=== PATIENT | male | born 1985 | race Native Hawaiian/Other Pacific Islander ===

== ENCOUNTER 2020-08-04 14:47 | Inpatient (IN) | payer OTHER ==
--- NOTE | 2020-08-04 15:00 | Event Note ---
ED Screening Note ED Screening Note: RUQ PAIN WITH N/V NO ETOH VSS This initial assessment/diagnostic orders/clinical plan/treatment(s) is/are subject to change based on patients health status, clinical progression and re- assessment by fellow clinical providers in the ED. Further treatment and workup at subsequent clinical providers discretion. Patient/guardian urged not to elope from the ED as their condition may be serious if not clinically assessed and managed. Initial orders include: LABS UA
[2020-08-04 15:45] LABS: Bilirubin,Urine NEG (Negative); Blood,Urine NEG (Negative); Color,Urine Yellow (Yellow); Urobilinogen,Urine < 2.0 mg/dL (<2.0)
[2020-08-04 15:50] LABS: Basophils % (Auto) 0.3 % (0.0-1.8); Eosinophils % (Auto) 0.2 % (0.0-4.3); Hematocrit 43.2 % (35.5-45.6); Hemoglobin 14.4 gm/dl (11.8-15.2); Lymphocytes # (Auto) 1.2 K/mm3 (1.2-5.4); Lymphocytes % (Auto) 8.8 % (13.4-35.0); Mean Corpuscular HGB Conc 33 % (32-34); Mean Corpuscular Volume 89 fl (84-94); Monocytes # (Auto) 1.2 K/mm3 (0.0-0.8); Monocytes % (Auto) 9.2 % (0.0-7.3); Platelet Count 253 K/mm3 (140-440); Red Blood Count 4.86 M/mm3 (3.65-5.03); Red Cell Distribution Width 13.4 % (13.2-15.2)
[2020-08-04 15:57] LABS: Alanine Aminotransferase 57 units/L (7-56); Albumin 4.5 g/dL (3.9-5); Blood Urea Nitrogen 9 mg/dL (9-20); Calcium 9.1 mg/dL (8.4-10.2); Hemolysis Index 16
[2020-08-04 15:59] LABS: BUN/Creatinine Ratio 15
[2020-08-04] MEDS ORDERED: KETOROLAC 30 MG/1 ML INJ IV ONE (17:59)
[2020-08-04] MEDS ORDERED: ONDANSETRON 4 MG/2 ML INJ IV ONE ×2 (17:59→19:07)
--- NOTE | 2020-08-04 18:46 | Cat Scan Report ---
CT abdomen pelvis w con INDICATION: Right-sided abdominal pain. COMPARISON: None TECHNIQUE: Abdominal and pelvic CT exam performed. All CT scans at this location are performed using CT dose reduction for ALARA by means of automated exposure control. FINDINGS: CT ABDOMEN and PELVIS: Lung Bases: No significant abnormality. Liver: Hypoattenuation liver consistent with hepatic steatosis.. Biliary: There are gallstones seen within the neck of the gallbladder measuring up to approximately 1 .8 cm. The gallbladder wall is mildly thickened. There is hyperemia in the hepatic parenchyma surroun ding the gallbladder fossa consistent with underlying inflammation. Spleen: No significant abnormality. Pancreas: No significant abnormality. Adrenals: No significant abnormality. Kidneys: No significant abnormality. Lymphatics: No lymphadenopathy. Vasculature: No significant abnormality. Bowel: No significant abnormality. Pelvis: No significant abnormality. Osseous Structures: No aggressive osseous lesion. Additional Findings: None IMPRESSION: 1. Findings consistent with acute calculous cholecystitis. Signer Name: Henrique Canada MD Signed: 08/04/2020 6:42 PM Workstation Name: [id number]
[2020-08-04] MEDS ORDERED: PIPERACIL/TAZOBACTA 4.5/NS 100 4.5 GM/100 ML VIAL IV ONE (19:07)
[2020-08-04] MEDS ORDERED: MORPHINE 4 MG/1 ML INJ IV ONE (19:07)
--- NOTE | 2020-08-04 19:22 | Emergency Department Report ---
ED Abdominal Pain HPI - General Chief Complaint: Abdominal Pain Stated Complaint: ABD PAIN Time Seen by Provider: 08/04/20 14:59 Source: patient Mode of arrival: Ambulatory Limitations: Language Barrier - History of Present Illness Initial Comments: Patient is a 34-year-old male previously healthy who is presenting with right upper quadrant pain. Patient states pain has been present for 2 days. Yesterday had several episodes of nausea and vomiting but the nausea has since resolved. Pain estimated 6 out of 10 in severity. Patient states the pain is not worse with movement with any other activity. Does not have a history of right upper quadrant pain with eating. Denies any cough cold congestion fevers or chills. Severity scale (0 -10): 6 Quality: aching Consistency: constant Improves With: nothing Worsens With: nothing Associated Symptoms: nausea, vomiting. denies: diarrhea, fever, chills, constipation, dysuria, hematemesis, melena, hematuria, anorexia, syncope - Related Data Allergies Allergy/AdvReac Type Severity Reaction Status Date / Time No Known Allergies Allergy Unverified 08/04/20 14:58 ED Review of Systems ROS: Stated complaint: ABD PAIN Other details as noted in HPI Comment: All other systems reviewed and negative ED Past Medical Hx - Past Medical History Previous Medical History?: No - Surgical History Past Surgical History?: No - Social History Smoking Status: Never Smoker Substance Use Type: None ED Physical Exam - General Limitations: Language Barrier General appearance: alert, in no apparent distress - Head Head exam: Present: atraumatic, normocephalic - Eye Eye exam: Present: normal appearance, PERRL, EOMI - ENT ENT exam: Present: mucous membranes moist - Neck Neck exam: Present: normal inspection - Respiratory Respiratory exam: Present: normal lung sounds bilaterally. Absent: respiratory distress, wheezes, rales, rhonchi - Cardiovascular Cardiovascular Exam: Present: regular rate, normal rhythm, normal heart sounds. Absent: systolic murmur, diastolic murmur, rubs, gallop - GI/Abdominal GI/Abdominal exam: Present: soft, normal bowel sounds. Absent: distended, tenderness, guarding, rebound - Rectal Rectal exam: Present: deferred - Extremities Exam Extremities exam: Present: normal inspection - Back Exam Back exam: Present: normal inspection - Neurological Exam Neurological exam: Present: alert, oriented X3 - Psychiatric Psychiatric exam: Present: normal affect, normal mood - Skin Skin exam: Present: warm, dry, intact, normal color. Absent: rash ED Course Vital Signs 08/04/20 08/04/20 08/04/20 15:01 18:00 18:15 Temperature 99.8 F H 99.5 F Pulse Rate 92 H 87 Respiratory 18 16 17 Rate Blood Pressure 135/83 Blood Pressure 132/77 [Right] O2 Sat by Pulse 98 97 Oximetry ED Medical Decision Making - Lab Data Result diagrams: 08/04/20 15:13 08/04/20 15:13 Lab Results 08/04/20 08/04/20 08/04/20 Range/Units 15:13 15:13 15:13 WBC 13.2 H (4.5-11.0) K/mm3 RBC 4.86 (3.65-5.03) M/mm3 Hgb 14.4 (11.8-15.2) gm/dl Hct 43.2 (35.5-45.6) % MCV 89 (84-94) fl MCH 30 (28-32) pg MCHC 33 (32-34) % RDW 13.4 (13.2-15.2) % Plt Count 253 (140-440) K/mm3 Lymph % (Auto) 8.8 L (13.4-35.0) % [place] % (Auto) 9.2 H (0.0-7.3) % Eos % (Auto) 0.2 (0.0-4.3) % Baso % (Auto) 0.3 (0.0-1.8) % Lymph # (Auto) 1.2 (1.2-5.4) K/mm3 [place] # (Auto) 1.2 H (0.0-0.8) K/mm3 Eos # (Auto) 0.0 (0.0-0.4) K/mm3 Baso # (Auto) 0.0 (0.0-0.1) K/mm3 Seg Neutrophils % 81.5 H (40.0-70.0) % Seg Neutrophils # 10.8 H (1.8-7.7) K/mm3 Sodium 138 (137-145) mmol/L Potassium 3.9 (3.6-5.0) mmol/L Chloride 98.9 (98-107) mmol/L Carbon Dioxide 28 (22-30) mmol/L Anion Gap 15 mmol/L BUN 9 (9-20) mg/dL Creatinine 0.6 L (0.8-1.3) mg/dL Estimated GFR > 60 ml/min BUN/Creatinine Ratio 15 % Glucose 149 H (75-100) mg/dL Calcium 9.1 (8.4-10.2) mg/dL Total Bilirubin 1.00 (0.1-1.2) mg/dL AST 23 (5-40) units/L ALT 57 H (7-56) units/L Alkaline Phosphatase 69 (35-129) units/L Total Protein 8.0 (6.3-8.2) g/dL Albumin 4.5 (3.9-5) g/dL Albumin/Globulin Ratio 1.3 % Lipase 18 (13-60) units/L Urine Color (Yellow) Urine Turbidity (Clear) Urine pH (5.0-7.0) Ur Specific [place] (1.003-1.030) Urine Protein (Negative) mg/dL Urine Glucose (UA) (Negative) mg/dL Urine Ketones (Negative) mg/dL Urine Blood (Negative) Urine Nitrite (Negative) Ur Reducing Substances Urine Bilirubin (Negative) Urine Ictotest Urine Urobilinogen (<2.0) mg/dL Ur Leukocyte Esterase (Negative) Urine WBC (Auto) (0.0-6.0) /HPF Urine RBC (Auto) (0.0-6.0) /HPF Urine Yeast (Budding) /HPF 08/04/20 Range/Units 15:21 WBC (4.5-11.0) K/mm3 RBC (3.65-5.03) M/mm3 Hgb (11.8-15.2) gm/dl Hct (35.5-45.6) % MCV (84-94) fl MCH (28-32) pg MCHC (32-34) % RDW (13.2-15.2) % Plt Count (140-440) K/mm3 Lymph % (Auto) (13.4-35.0) % [place] % (Auto) (0.0-7.3) % Eos % (Auto) (0.0-4.3) % Baso % (Auto) (0.0-1.8) % Lymph # (Auto) (1.2-5.4) K/mm3 [place] # (Auto) (0.0-0.8) K/mm3 Eos # (Auto) (0.0-0.4) K/mm3 Baso # (Auto) (0.0-0.1) K/mm3 Seg Neutrophils % (40.0-70.0) % Seg Neutrophils # (1.8-7.7) K/mm3 Sodium (137-145) mmol/L Potassium (3.6-5.0) mmol/L Chloride (98-107) mmol/L Carbon Dioxide (22-30) mmol/L Anion Gap mmol/L BUN (9-20) mg/dL Creatinine (0.8-1.3) mg/dL Estimated GFR ml/min BUN/Creatinine Ratio % Glucose (75-100) mg/dL Calcium (8.4-10.2) mg/dL Total Bilirubin (0.1-1.2) mg/dL AST (5-40) units/L ALT (7-56) units/L Alkaline Phosphatase (35-129) units/L Total Protein (6.3-8.2) g/dL Albumin (3.9-5) g/dL Albumin/Globulin Ratio % Lipase (13-60) units/L Urine Color Yellow (Yellow) Urine Turbidity Cloudy (Clear) Urine pH 8.0 H (5.0-7.0) Ur Specific [place] 1.024 (1.003-1.030) Urine Protein 30 mg/dl (Negative) mg/dL Urine Glucose (UA) Neg (Negative) mg/dL Urine Ketones Neg (Negative) mg/dL Urine Blood Neg (Negative) Urine Nitrite Neg (Negative) Ur Reducing Substances Not Reportable Urine Bilirubin Neg (Negative) Urine Ictotest Not Reportable Urine Urobilinogen < 2.0 (<2.0) mg/dL Ur Leukocyte Esterase Neg (Negative) Urine WBC (Auto) 9.0 H (0.0-6.0) /HPF Urine RBC (Auto) 1.0 (0.0-6.0) /HPF Urine Yeast (Budding) 3+ /HPF - Medical Decision Making CT is consistent with acute cholecystitis. Patient has slight elevation of his white count at 13. Spoke with Dr. Hernández with general surgery who suggested that the patient receive the ultrasound but be started on Zosyn to be admitted to the hospitalist service. Patient be admitted for further management and treatment. Critical care attestation.: If time is entered above; I have spent that time in minutes in the direct care of this critically ill patient, excluding procedure time. ED Disposition Clinical Impression: Acute cholecystitis Disposition: OP ADMIT IP TO THIS HOSP Is pt being admited?: Yes Does the pt Need Aspirin: No Condition: Stable Time of Disposition: 19:22
--- NOTE | 2020-08-04 20:31 | Ultrasound Report ---
ULTRASOUND ABDOMEN, LIMITED (RIGHT UPPER QUADRANT) INDICATION: RUQ pain. COMPARISON: Abdominal CT earlier today FINDINGS: Pancreas: Visualized portion shows no significant abnormality. Liver: Moderate increased echotexture characteristic for steatosis. Gallbladder: Multiple calcified gallstones with thickened edematous gallbladder wall measuring 5 mm Bile ducts: Normal. Common Bile Duct measures 6 mm. Free fluid: None. Additional Findings: None. IMPRESSION: 1. Cholelithiasis with thickened gallbladder wall characteristic for cholecystitis 2. Hepatic steatosis Signer Name: Earl Ronquillo MD Signed: 08/04/2020 8:26 PM Workstation Name: [id number]
--- NOTE | 2020-08-04 22:39 | History and Physical Report ---
History of Present Illness Date of examination: 08/04/20 Date of admission: 08/04/20 19:22 Chief complaint: Right upper quadrant pain since last night History of present illness: 34-year-old Indonesian-speaking male ongoing for right upper quadrant pain for the last 2 days. Pain is about 10 on a scale of 1-10. Associated with nausea and vomiting. Several episodes of vomiting yesterday. Pain is intermittent. Eating is a exacerbating factor. Not eating is a relieving factor. No significant past medical history. - Past Medical History Previous Medical History?: No - Surgical History Past Surgical History?: No - Social History Smoking Status: Never Smoker Substance Use Type: None Review of Systems ROS: Constitutional no weight loss or weight gain no fever or chills HEENT no sore throat no post nasal drip no diplopia Neck no neck stiffness no lymph gland enlargement Chest and lungs no shortness of breath cough or wheezing CVS no chest pain no diaphoresis no palpitations GI nausea vomiting and right upper quadrant pain for 2 days Genitourinary system no dysuria no flank pain Musculoskeletal system no muscle pains 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 Skin no rash no itching Psychiatric no depression no homicidal or suicidal tendencies Hematologic no lymphedema or bruising Endocrine no polydipsia no polyuria no cold intolerance no heat intolerance Medications and Allergies Allergies Allergy/AdvReac Type Severity Reaction Status Date / Time No Known Allergies Allergy Unverified 08/04/20 14:58 Exam - Constitutional Vitals: Temp Pulse Resp BP Pulse Ox 99.5 F 85 22 108/64 96 08/04/20 18:15 08/04/20 22:15 08/04/20 22:15 08/04/20 22:15 08/04/20 22:15 General appearance: Present: mild distress (Secondary to pain), well-nourished - EENT Eyes: Present: PERRL ENT: hearing intact, clear oral mucosa - Neck Neck: Present: supple, normal ROM - Respiratory Respiratory effort: normal Respiratory: bilateral: CTA - Cardiovascular Heart rate: 98 Rhythm: regular Heart Sounds: Present: S1 & S2. Absent: rub, click - Extremities Extremities: no ischemia, pulses intact, pulses symmetrical, No edema Peripheral Pulses: within normal limits - Abdominal General gastrointestinal: Present: soft, non-tender, non-distended, normal bowel sounds Localized gastrointestinal: tender: RUQ, guarding: RUQ, rebound: RUQ Male genitourinary: Present: normal - Integumentary Integumentary: Present: clear, warm, dry - Musculoskeletal Musculoskeletal: gait normal, strength equal bilaterally - Psychiatric Psychiatric: appropriate mood/affect, intact judgment & insight - Neurologic Neurologic: CNII-XII intact, moves all extremities - Allied Health Allied health notes reviewed: nursing, case management Results - Labs CBC & Chem 7: 08/04/20 15:13 08/04/20 15:13 Labs: Laboratory Last Values WBC 13.2 K/mm3 (4.5-11.0) H 08/04/20 15:13 RBC 4.86 M/mm3 (3.65-5.03) 08/04/20 15:13 Hgb 14.4 gm/dl (11.8-15.2) 08/04/20 15:13 Hct 43.2 % (35.5-45.6) 08/04/20 15:13 MCV 89 fl (84-94) 08/04/20 15:13 MCH 30 pg (28-32) 08/04/20 15:13 MCHC 33 % (32-34) 08/04/20 15:13 RDW 13.4 % (13.2-15.2) 08/04/20 15:13 Plt Count 253 K/mm3 (140-440) 08/04/20 15:13 Lymph % (Auto) 8.8 % (13.4-35.0) L 08/04/20 15:13 [place] % (Auto) 9.2 % (0.0-7.3) H 08/04/20 15:13 Eos % (Auto) 0.2 % (0.0-4.3) 08/04/20 15:13 Baso % (Auto) 0.3 % (0.0-1.8) 08/04/20 15:13 Lymph # (Auto) 1.2 K/mm3 (1.2-5.4) 08/04/20 15:13 [place] # (Auto) 1.2 K/mm3 (0.0-0.8) H 08/04/20 15:13 Eos # (Auto) 0.0 K/mm3 (0.0-0.4) 08/04/20 15:13 Baso # (Auto) 0.0 K/mm3 (0.0-0.1) 08/04/20 15:13 Seg Neutrophils % 81.5 % (40.0-70.0) H 08/04/20 15:13 Seg Neutrophils # 10.8 K/mm3 (1.8-7.7) H 08/04/20 15:13 Sodium 138 mmol/L (137-145) 08/04/20 15:13 Potassium 3.9 mmol/L (3.6-5.0) 08/04/20 15:13 Chloride 98.9 mmol/L (98-107) 08/04/20 15:13 Carbon Dioxide 28 mmol/L (22-30) 08/04/20 15:13 Anion Gap 15 mmol/L 08/04/20 15:13 BUN 9 mg/dL (9-20) 08/04/20 15:13 Creatinine 0.6 mg/dL (0.8-1.3) L 08/04/20 15:13 Estimated GFR > 60 ml/min 08/04/20 15:13 BUN/Creatinine Ratio 15 % 08/04/20 15:13 Glucose 149 mg/dL (75-100) H 08/04/20 15:13 Calcium 9.1 mg/dL (8.4-10.2) 08/04/20 15:13 Total Bilirubin 1.00 mg/dL (0.1-1.2) 08/04/20 15:13 AST 23 units/L (5-40) 08/04/20 15:13 ALT 57 units/L (7-56) H 08/04/20 15:13 Alkaline Phosphatase 69 units/L (35-129) 08/04/20 15:13 Total Protein 8.0 g/dL (6.3-8.2) 08/04/20 15:13 Albumin 4.5 g/dL (3.9-5) 08/04/20 15:13 Albumin/Globulin Ratio 1.3 % 08/04/20 15:13 Lipase 18 units/L (13-60) 08/04/20 15:13 Urine Color Yellow (Yellow) 08/04/20 15:21 Urine Turbidity Cloudy (Clear) 08/04/20 15:21 Urine pH 8.0 (5.0-7.0) H 08/04/20 15:21 Ur Specific [place] 1.024 (1.003-1.030) 08/04/20 15:21 Urine Protein 30 mg/dl mg/dL (Negative) 08/04/20 15:21 Urine Glucose (UA) Neg mg/dL (Negative) 08/04/20 15:21 Urine Ketones Neg mg/dL (Negative) 08/04/20 15:21 Urine Blood Neg (Negative) 08/04/20 15:21 Urine Nitrite Neg (Negative) 08/04/20 15: Ur Reducing Substances Not Reportable 08/04/20 15:21 Urine Bilirubin Neg (Negative) 08/04/20 15: Urine Ictotest Not Reportable 08/04/20 15: Urine Urobilinogen < 2.0 mg/dL (<2.0) 08/04/20 15:21 Ur Leukocyte Esterase Neg (Negative) 08/04/20 15:21 Urine WBC (Auto) 9.0 /HPF (0.0-6.0) H 08/04/20 15:21 Urine RBC (Auto) 1.0 /HPF (0.0-6.0) 08/04/20 15:21 Urine Yeast (Budding) 3+ /HPF 08/04/20 15:21 Short CBC 08/04/20 Range/Units 15:13 WBC 13.2 H (4.5-11.0) K/mm3 Hgb 14.4 (11.8-15.2) gm/dl Hct 43.2 (35.5-45.6) % Plt Count 253 (140-440) K/mm3 BMP 08/04/20 15:13 Sodium 138 Potassium 3.9 Chloride 98.9 Carbon Dioxide 28 BUN 9 Creatinine 0.6 L Glucose 149 H Calcium 9.1 Liver Function 08/04/20 Range/Units 15:13 Total Bilirubin 1.00 (0.1-1.2) mg/dL AST 23 (5-40) units/L ALT 57 H (7-56) units/L Alkaline Phosphatase 69 (35-129) units/L Albumin 4.5 (3.9-5) g/dL Urine 08/04/20 Range/Units 15:21 Urine Color Yellow (Yellow) Urine pH 8.0 H (5.0-7.0) Ur Specific [place] 1.024 (1.003-1.030) Urine Protein 30 mg/dl (Negative) mg/dL Urine Glucose (UA) Neg (Negative) mg/dL - Imaging and Cardiology CT scan - abdomen: report reviewed US - abdomen: report reviewed Imaging and Cardiology: Abdominal CAT scan Findings consistent with acute calculus cholecystitis none Abdominal ultrasound Cholelithiasis with thickened gallbladder wall It were cholecystitis Hepatic steatosis Assessment and Plan Advance Directives: Yes (Full code) VTE prophylaxis?: Chemical Plan of care discussed with patient/family: Yes - Patient Problems (1) SIRS (systemic inflammatory response syndrome) Current Visit: Yes Status: Acute Plan to address problem: Patient had leukocytosis and tachycardia (2) Acute cholecystitis Current Visit: Yes Status: Acute Plan to address problem: Patient initiated on IV Zosyn and IV Dilaudid for pain and IV Zofran for nausea vomiting Surgery consult requested (3) DVT prophylaxis Current Visit: Yes Status: Acute Plan to address problem: On SCDs and GI prophylaxis (4) Acute dehydration Current Visit: Yes Status: Acute Plan to address problem: IV fluids for now
[2020-08-04] MEDS ORDERED: ONDANSETRON 4 MG/2 ML INJ IV PRN (22:40)
[2020-08-04] MEDS ORDERED: METOCLOPRAMIDE 10 MG/2 ML INJ IV PRN (22:40)
[2020-08-04] MEDS ORDERED: ACETAMINOPHEN 325 MG TAB PO PRN (22:40)
[2020-08-05] MEDS: D5W/0.9% NACL 1,000 ML IV SCH (00:26)
[2020-08-05] MEDS: FAMOTIDINE 20 MG/2 ML INJ IV SCH ×3 (00:27→21:34)
[2020-08-05] MEDS: PIPERACIL/TAZOBACTA 4.5/NS 100 4.5 GM/100 ML VIAL IV SCH ×3 (04:41→22:43)
--- NOTE | 2020-08-05 09:03 | Progress Note ---
Assessment and Plan Assessment and plan: (1) sepsis Current Visit: Yes Status: Acute Plan to address problem: Patient had leukocytosis and tachycardia Patient is on IV Zosyn (2) Acute cholecystitis Current Visit: Yes Status: Acute Plan to address problem: Patient initiated on IV Zosyn and IV Dilaudid for pain and IV Zofran for nausea vomiting Surgery consult requested (3) DVT prophylaxis Current Visit: Yes Status: Acute Plan to address problem: On SCDs and GI prophylaxis (4) Acute dehydration Current Visit: Yes Status: Acute Plan to address problem: IV fluids for now 08/05/2020 -Patient is admitted for sepsis, acute cholecystitis. Patient is on IV Zosyn. General surgery; Dr. Hernández was consulted. Will follow surgical recommendations. History Interval history: Patient was seen and evaluated this morning Patient is complaining of right upper quadrant pain Hospitalist Physical - Physical exam Narrative exam: Not in cardiopulmonary distress. The patient appeared well nourished and normally developed. Vital signs as documented. Head exam is unremarkable. No scleral icterus . Neck is without jugular venous distension, thyromegaly, or carotid bruits. Lungs are clear to auscultation. Cardiac exam reveals regular rate and Rhythm. Abdominal exam reveals normal bowel sounds, no organomegaly. Right upper quadrant tenderness. Extremities are nonedematous and both femoral and pedal pulses are normal. 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 No focal weakness. - Constitutional Vitals: Temp Pulse Resp BP Pulse Ox 97.5 F L 84 16 108/72 96 08/05/20 03:21 08/05/20 03:21 08/05/20 03:21 08/05/20 03:21 08/05/20 03:21 General appearance: Present: mild distress (Secondary to pain), well-nourished Results - Labs CBC & Chem 7: 08/04/20 15:13 08/04/20 15:13 Labs: Laboratory Last Values WBC 13.2 K/mm3 (4.5-11.0) H 08/04/20 15:13 RBC 4.86 M/mm3 (3.65-5.03) 08/04/20 15:13 Hgb 14.4 gm/dl (11.8-15.2) 08/04/20 15:13 Hct 43.2 % (35.5-45.6) 08/04/20 15:13 MCV 89 fl (84-94) 08/04/20 15:13 MCH 30 pg (28-32) 08/04/20 15:13 MCHC 33 % (32-34) 08/04/20 15:13 RDW 13.4 % (13.2-15.2) 08/04/20 15:13 Plt Count 253 K/mm3 (140-440) 08/04/20 15:13 Lymph % (Auto) 8.8 % (13.4-35.0) L 08/04/20 15:13 [place] % (Auto) 9.2 % (0.0-7.3) H 08/04/20 15:13 Eos % (Auto) 0.2 % (0.0-4.3) 08/04/20 15:13 Baso % (Auto) 0.3 % (0.0-1.8) 08/04/20 15:13 Lymph # (Auto) 1.2 K/mm3 (1.2-5.4) 08/04/20 15:13 [place] # (Auto) 1.2 K/mm3 (0.0-0.8) H 08/04/20 15:13 Eos # (Auto) 0.0 K/mm3 (0.0-0.4) 08/04/20 15:13 Baso # (Auto) 0.0 K/mm3 (0.0-0.1) 08/04/20 15:13 Seg Neutrophils % 81.5 % (40.0-70.0) H 08/04/20 15:13 Seg Neutrophils # 10.8 K/mm3 (1.8-7.7) H 08/04/20 15:13 Sodium 138 mmol/L (137-145) 08/04/20 15:13 Potassium 3.9 mmol/L (3.6-5.0) 08/04/20 15:13 Chloride 98.9 mmol/L (98-107) 08/04/20 15:13 Carbon Dioxide 28 mmol/L (22-30) 08/04/20 15:13 Anion Gap 15 mmol/L 08/04/20 15:13 BUN 9 mg/dL (9-20) 08/04/20 15:13 Creatinine 0.6 mg/dL (0.8-1.3) L 08/04/20 15:13 Estimated GFR > 60 ml/min 08/04/20 15:13 BUN/Creatinine Ratio 15 % 08/04/20 15:13 Glucose 149 mg/dL (75-100) H 08/04/20 15:13 Calcium 9.1 mg/dL (8.4-10.2) 08/04/20 15:13 Total Bilirubin 1.00 mg/dL (0.1-1.2) 08/04/20 15:13 AST 23 units/L (5-40) 08/04/20 15:13 ALT 57 units/L (7-56) H 08/04/20 15:13 Alkaline Phosphatase 69 units/L (35-129) 08/04/20 15:13 Total Protein 8.0 g/dL (6.3-8.2) 08/04/20 15:13 Albumin 4.5 g/dL (3.9-5) 08/04/20 15:13 Albumin/Globulin Ratio 1.3 % 08/04/20 15:13 Lipase 18 units/L (13-60) 08/04/20 15:13 Urine Color Yellow (Yellow) 08/04/20 15:21 Urine Turbidity Cloudy (Clear) 08/04/20 15:21 Urine pH 8.0 (5.0-7.0) H 08/04/20 15:21 Ur Specific [place] 1.024 (1.003-1.030) 08/04/20 15:21 Urine Protein 30 mg/dl mg/dL (Negative) 08/04/20 15:21 Urine Glucose (UA) Neg mg/dL (Negative) 08/04/20 15:21 Urine Ketones Neg mg/dL (Negative) 08/04/20 15:21 Urine Blood Neg (Negative) 08/04/20 15:21 Urine Nitrite Neg (Negative) 08/04/20 15:21 Ur Reducing Substances Not Reportable 08/04/20 15: Urine Bilirubin Neg (Negative) 08/04/20 15:21 Urine Ictotest Not Reportable 08/04/20 15:21 Urine Urobilinogen < 2.0 mg/dL (<2.0) 08/04/20 15:21 Ur Leukocyte Esterase Neg (Negative) 08/04/20 15:21 Urine WBC (Auto) 9.0 /HPF (0.0-6.0) H 08/04/20 15:21 Urine RBC (Auto) 1.0 /HPF (0.0-6.0) 08/04/20 15:21 Urine Yeast (Budding) 3+ /HPF 08/04/20 15:21 Gordon/IV: Voiding Method Toilet Active Medications - Current Medications Current Medications: Generic Name Dose Route Start Last Admin Trade Name Freq PRN Reason Stop Dose Admin Acetaminophen 650 mg 08/04/20 22:40 Acetaminophen 325 Mg Tab PO Q4H PRN Pain MILD(1-3)/Fever >100.5/MARIN Famotidine 20 mg 08/04/20 23:00 08/05/20 00:27 Famotidine 20 Mg/2 Ml Inj IV 20 mg BID SEAN Administration Heparin Sodium (Porcine) 5,000 unit 08/05/20 22:00 Heparin 5,000 Unit/1 Ml Vial SUB-Q Q12HR SEAN Hydromorphone HCl 0.5 mg 08/04/20 22:40 Hydromorphone 1 Mg/1 Ml Inj IV Q3H PRN Pain , Severe (7-10) Dextrose/Sodium Chloride 1,000 mls @ 100 mls/hr 08/04/20 23:00 08/05/20 00:26 D5ns IV 100 mls/hr DIRECT SEAN Administration Piperacillin Sod/Tazobactam Sod 4.5 gm in 100 mls @ 200 mls/hr 08/05/20 04:00 08/05/20 07:17 Zosyn/Ns 4.5gm/100ml IV Infused Q8HR SEAN Infusion Protocol Metoclopramide HCl 10 mg 08/04/20 22:40 Metoclopramide 10 Mg/2 Ml Inj IV Q6H PRN Nausea And Vomiting Morphine Sulfate 2 mg 08/04/20 22:40 Morphine 2 Mg/1 Ml Inj IV Q4H PRN Pain, Moderate (4-6) Ondansetron HCl 4 mg 08/04/20 22:40 Ondansetron 4 Mg/2 Ml Inj IV Q3H PRN Nausea And Vomiting Sodium Chloride 10 ml 08/04/20 23:00 08/05/20 00:27 Sodium Chloride 0.9% 10 Ml Flush Syringe IV 10 ml BID SEAN Administration Sodium Chloride 10 ml 08/04/20 22:40 Sodium Chloride 0.9% 10 Ml Flush Syringe IV PRN PRN LINE FLUSH Nutrition/Malnutrition Assess - Dietary Evaluation Nutrition/Malnutrition Findings: Nutrition Notes Start: 08/05/20 08:51 Freq: Status: Active Protocol: Document 08/05/20 08:51 AB (Rec: 08/05/20 08:53 AB [id number]) Co-Sign 08/05/20 08:51 MK Nutrition Notes Need for Assessment 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 Per chart, Toño Score is 22. Nutrition Intervention Anticipated Discharge Needs: Regular diet Revisit per MD consult or patient Sign Off request:
[2020-08-05] MEDS: MORPHINE 2 MG/1 ML INJ IV PRN ×3 (13:34→22:43)
--- NOTE | 2020-08-05 16:54 | Consultation ---
History of Present Illness Consult date: 08/05/20 Reason for consult: abdominal pain - History of present illness History of present illness: 34 yo male with 2 days of RUQ pain, nausea and vomiting. Eating exacerbates his pain. No relieving factors. Medications and Allergies Allergies Allergy/AdvReac Type Severity Reaction Status Date / Time No Known Allergies Allergy Unverified 08/04/20 14:58 Active Meds: Active Medications Acetaminophen (Acetaminophen 325 Mg Tab) 650 mg PO Q4H PRN PRN Reason: Pain MILD(1-3)/Fever >100.5/MARIN Famotidine (Famotidine 20 Mg/2 Ml Inj) 20 mg IV BID [facility] Last Admin: 08/05/20 13:13 Dose: 20 mg Documented by: Heparin Sodium (Porcine) (Heparin 5,000 Unit/1 Ml Vial) 5,000 unit SUB-Q Q12HR SEAN Hydromorphone HCl (Hydromorphone 1 Mg/1 Ml Inj) 0.5 mg IV Q3H PRN PRN Reason: Pain , Severe (7-10) Dextrose/Sodium Chloride (D5ns) 1,000 mls @ 100 mls/hr IV DIRECT [facility] Last Admin: 08/05/20 00:26 Dose: 100 mls/hr Documented by: Piperacillin Sod/Tazobactam Sod (Zosyn/Ns 4.5gm/100ml) 4.5 gm in 100 mls @ 200 mls/hr IV Q8HR [facility]; Protocol Last Admin: 08/05/20 13:12 Dose: 200 mls/hr Documented by: Metoclopramide HCl (Metoclopramide 10 Mg/2 Ml Inj) 10 mg IV Q6H PRN PRN Reason: Nausea And Vomiting Morphine Sulfate (Morphine 2 Mg/1 Ml Inj) 2 mg IV Q4H PRN PRN Reason: Pain, Moderate (4-6) Last Admin: 08/05/20 13:34 Dose: 2 mg Documented by: Ondansetron HCl (Ondansetron 4 Mg/2 Ml Inj) 4 mg IV Q3H PRN PRN Reason: Nausea And Vomiting Sodium Chloride (Sodium Chloride 0.9% 10 Ml Flush Syringe) 10 ml IV BID [facility] Last Admin: 08/05/20 13:12 Dose: 10 ml Documented by: Sodium Chloride (Sodium Chloride 0.9% 10 Ml Flush Syringe) 10 ml IV PRN PRN PRN Reason: LINE FLUSH Review of Systems All systems: negative (none) Exam Vital Signs Temp Pulse Resp BP Pulse Ox 99.8 F H 92 H 18 135/83 98 08/04/20 15:01 08/04/20 15:01 08/04/20 15:01 08/04/20 15:01 08/04/20 15:01 - General physical appearance Positive: well developed, well nourished, no distress - Eyes Positive: PERRL, normal occular movement - ENT Positive: normal pinna, normal nares, normal mucosa, no hearing loss, no congestion - Neck Positive: no masses, no bruits, trachea midline, no venous distension - Respiratory Positive: normal expansion, normal respiratory effort, clear to auscultation - Cardiovascular Rhythm: regular Heart Sounds: Present: S1 & S2. Absent: rub, click - Extremities Extremities: no ischemia, pulses symmetrical, No edema - Breasts Breasts: normal, no mass, no skin changes - Abdomen Abdomen: Present: soft, bowel sounds normal, other (Mildly TTP in the RUQ without rebound or guarding). Absent: distended Hernia: none - Genitourinary Male Genitourinary: normal Female Genitourinary: normal - Integumentary no rash, no growths, no abnormal pigmentation - Neurologic Neurologic: alert and oriented to time, place and person, motor strength and sensation are grossly intact - Musculoskeletal normal gait, normal posture - Psychiatric Psychiatric: appropriate mood/affect, intact judgment & insight Results - Labs 08/04/20 15:13 08/04/20 15:13 - Imaging CT scan - abdomen: report reviewed CT scan - pelvis: report reviewed US - abdomen: report reviewed Assessment and Plan - Patient Problems (1) Acute cholecystitis Current Visit: Yes Status: Acute Plan to address problem: 1) Clear liquids until MN 2) NPO after MN 3) Lap yesica tomorrow 4) Broad spectrum IV antibiotics 5) SCD
[2020-08-05] MEDS: HEPARIN 5,000 UNIT/1 ML VIAL SUB-Q SCH (21:33)
[2020-08-06] MEDS: PIPERACIL/TAZOBACTA 4.5/NS 100 4.5 GM/100 ML VIAL IV SCH ×3 (05:28→21:31)
[2020-08-06 06:06] LABS: Basophils % (Auto) 0.4 % (0.0-1.8); Eosinophils # (Auto) 0.3 K/mm3 (0.0-0.4); Eosinophils % (Auto) 2.7 % (0.0-4.3); Hematocrit 40.6 % (35.5-45.6); Hemoglobin 13.6 gm/dl (11.8-15.2); Lymphocytes # (Auto) 1.4 K/mm3 (1.2-5.4); Lymphocytes % (Auto) 15.3 % (13.4-35.0); Mean Corpuscular HGB Conc 34 % (32-34); Mean Corpuscular Volume 89 fl (84-94); Monocytes # (Auto) 1.4 K/mm3 (0.0-0.8); Monocytes % (Auto) 15.8 % (0.0-7.3); Platelet Count 239 K/mm3 (140-440); Red Blood Count 4.57 M/mm3 (3.65-5.03)
[2020-08-06 06:16] LABS: Alanine Aminotransferase 39 units/L (7-56); Albumin 3.9 g/dL (3.9-5); Blood Urea Nitrogen 9 mg/dL (9-20); Calcium 8.8 mg/dL (8.4-10.2); Hemolysis Index 0
[2020-08-06 06:17] LABS: BUN/Creatinine Ratio 13
--- NOTE | 2020-08-06 08:59 | Progress Note ---
Assessment and Plan Assessment and plan: (1) sepsis Current Visit: Yes Status: Acute Plan to address problem: Patient had leukocytosis and tachycardia Patient is on IV Zosyn (2) Acute cholecystitis Current Visit: Yes Status: Acute Plan to address problem: Patient initiated on IV Zosyn and IV Dilaudid for pain and IV Zofran for nausea vomiting Surgery consult requested (3) DVT prophylaxis Current Visit: Yes Status: Acute Plan to address problem: On SCDs and GI prophylaxis (4) Acute dehydration Current Visit: Yes Status: Acute Plan to address problem: IV fluids for now 08/05/2020 -Patient is admitted for sepsis, acute cholecystitis. Patient is on IV Zosyn. General surgery; Dr. Hernández was consulted. Will follow surgical recommendations. 08/06/2020 -Continue with IV antibiotic. Patient will have laparoscopic cholecystectomy today. History Interval history: Patient was seen and evaluated this morning Patient is complaining of right upper quadrant pain Hospitalist Physical - Physical exam Narrative exam: Not in cardiopulmonary distress. The patient appeared well nourished and normally developed. Vital signs as documented. Head exam is unremarkable. No scleral icterus . Neck is without jugular venous distension, thyromegaly, or carotid bruits. Lungs are clear to auscultation. Cardiac exam reveals regular rate and Rhythm. Abdominal exam reveals normal bowel sounds, no organomegaly. Right upper quadrant tenderness. Extremities are nonedematous and both femoral and pedal pulses are normal. MANAGER HOME: Alert and oriented 3. No focal weakness. - Constitutional Vitals: Temp Pulse Resp BP Pulse Ox 98.6 F 73 17 99/61 95 08/06/20 05:13 08/06/20 05:13 08/06/20 05:13 08/06/20 05:13 08/06/20 05:13 General appearance: Present: mild distress (Secondary to pain), well-nourished Results - Labs CBC & Chem 7: 08/06/20 05:06 08/06/20 05:06 Labs: Laboratory Last Values WBC 9.2 K/mm3 (4.5-11.0) 08/06/20 05:06 RBC 4.57 M/mm3 (3.65-5.03) 08/06/20 05:06 Hgb 13.6 gm/dl (11.8-15.2) 08/06/20 05:06 Hct 40.6 % (35.5-45.6) 08/06/20 05:06 MCV 89 fl (84-94) 08/06/20 05:06 MCH 30 pg (28-32) 08/06/20 05:06 MCHC 34 % (32-34) 08/06/20 05:06 RDW 13.0 % (13.2-15.2) L 08/06/20 05:06 Plt Count 239 K/mm3 (140-440) 08/06/20 05:06 Lymph % (Auto) 15.3 % (13.4-35.0) 08/06/20 05:06 [place] % (Auto) 15.8 % (0.0-7.3) H 08/06/20 05:06 Eos % (Auto) 2.7 % (0.0-4.3) 08/06/20 05:06 Baso % (Auto) 0.4 % (0.0-1.8) 08/06/20 05:06 Lymph # (Auto) 1.4 K/mm3 (1.2-5.4) 08/06/20 05:06 [place] # (Auto) 1.4 K/mm3 (0.0-0.8) H 08/06/20 05:06 Eos # (Auto) 0.3 K/mm3 (0.0-0.4) 08/06/20 05:06 Baso # (Auto) 0.0 K/mm3 (0.0-0.1) 08/06/20 05:06 Seg Neutrophils % 65.8 % (40.0-70.0) 08/06/20 05:06 Seg Neutrophils # 6.0 K/mm3 (1.8-7.7) 08/06/20 05:06 Sodium 138 mmol/L (137-145) 08/06/20 05:06 Potassium 3.9 mmol/L (3.6-5.0) 08/06/20 05:06 Chloride 102.4 mmol/L (98-107) 08/06/20 05:06 Carbon Dioxide 28 mmol/L (22-30) 08/06/20 05:06 Anion Gap 12 mmol/L 08/06/20 05:06 BUN 9 mg/dL (9-20) 08/06/20 05:06 Creatinine 0.7 mg/dL (0.8-1.3) L 08/06/20 05:06 Estimated GFR > 60 ml/min 08/06/20 05:06 BUN/Creatinine Ratio 13 % 08/06/20 05:06 Glucose 118 mg/dL (75-100) H 08/06/20 05:06 Calcium 8.8 mg/dL (8.4-10.2) 08/06/20 05:06 Total Bilirubin 1.00 mg/dL (0.1-1.2) 08/06/20 05:06 AST 18 units/L (5-40) 08/06/20 05:06 ALT 39 units/L (7-56) 08/06/20 05:06 Alkaline Phosphatase 66 units/L (35-129) 08/06/20 05:06 Total Protein 7.5 g/dL (6.3-8.2) 08/06/20 05:06 Albumin 3.9 g/dL (3.9-5) 08/06/20 05:06 Albumin/Globulin Ratio 1.1 % 08/06/20 05:06 Lipase 18 units/L (13-60) 08/04/20 15:13 Urine Color Yellow (Yellow) 08/04/20 15:21 Urine Turbidity Cloudy (Clear) 08/04/20 15:21 Urine pH 8.0 (5.0-7.0) H 08/04/20 15:21 Ur Specific Effort 1.024 (1.003-1.030) 08/04/20 15:21 Urine Protein 30 mg/dl mg/dL (Negative) 08/04/20 15:21 Urine Glucose (UA) Neg mg/dL (Negative) 08/04/20 15:21 Urine Ketones Neg mg/dL (Negative) 08/04/20 15:21 Urine Blood Neg (Negative) 08/04/20 15:21 Urine Nitrite Neg (Negative) 08/04/20 15:21 Ur Reducing Substances Not Reportable 08/04/20 15:21 Urine Bilirubin Neg (Negative) 08/04/20 15:21 Urine Ictotest Not Reportable 08/04/20 15:21 Urine Urobilinogen < 2.0 mg/dL (<2.0) 08/04/20 15:21 Ur Leukocyte Esterase Neg (Negative) 08/04/20 15:21 Urine WBC (Auto) 9.0 /HPF (0.0-6.0) H 08/04/20 15:21 Urine RBC (Auto) 1.0 /HPF (0.0-6.0) 08/04/20 15:21 Urine Yeast (Budding) 3+ /HPF 08/04/20 15:21 Gordon/IV: Voiding Method Toilet Active Medications - Current Medications Current Medications: Generic Name Dose Route Start Last Admin Trade Name Freq PRN Reason Stop Dose Admin Acetaminophen 650 mg 08/04/20 22:40 Acetaminophen 325 Mg Tab PO Q4H PRN Pain MILD(1-3)/Fever >100.5/MARIN Famotidine 20 mg 08/04/20 23:00 08/05/20 21:34 Famotidine 20 Mg/2 Ml Inj IV 20 mg BID SEAN Administration Heparin Sodium (Porcine) 5,000 unit 08/05/20 22:00 08/05/20 21:33 Heparin 5,000 Unit/1 Ml Vial SUB-Q 5,000 unit Q12HR SEAN Administration Hydromorphone HCl 0.5 mg 08/04/20 22:40 Hydromorphone 1 Mg/1 Ml Inj IV Q3H PRN Pain , Severe (7-10) Dextrose/Sodium Chloride 1,000 mls @ 100 mls/hr 08/04/20 23:00 08/05/20 00:26 D5ns IV 100 mls/hr DIRECT SEAN Administration Piperacillin Sod/Tazobactam Sod 4.5 gm in 100 mls @ 200 mls/hr 08/05/20 04:00 08/06/20 05:28 Zosyn/Ns 4.5gm/100ml IV 200 mls/hr Q8HR SEAN Administration Protocol Metoclopramide HCl 10 mg 08/04/20 22:40 Metoclopramide 10 Mg/2 Ml Inj IV Q6H PRN Nausea And Vomiting Morphine Sulfate 2 mg 08/04/20 22:40 08/05/20 22:43 Morphine 2 Mg/1 Ml Inj IV 2 mg Q4H PRN Administration Pain, Moderate (4-6) Ondansetron HCl 4 mg 08/04/20 22:40 Ondansetron 4 Mg/2 Ml Inj IV Q3H PRN Nausea And Vomiting Sodium Chloride 10 ml 08/04/20 23:00 08/05/20 21:35 Sodium Chloride 0.9% 10 Ml Flush Syringe IV 10 ml BID SEAN Administration Sodium Chloride 10 ml 08/04/20 22:40 Sodium Chloride 0.9% 10 Ml Flush Syringe IV PRN PRN LINE FLUSH Nutrition/Malnutrition Assess - Dietary Evaluation Nutrition/Malnutrition Findings: Nutrition Notes Start: 08/05/20 08:51 Freq: Status: Active Protocol: Document 08/05/20 08:51 AB (Rec: 08/05/20 08:53 AB [id number]) Co-Sign 08/05/20 08:51 MK Nutrition Notes Need for Assessment 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 Per chart, Toño Score is 22. Nutrition Intervention Anticipated Discharge Needs: Regular diet Revisit per MD consult or patient Sign Off request:
[2020-08-06] MEDS: HEPARIN 5,000 UNIT/1 ML VIAL SUB-Q SCH ×2 (09:53→21:30)
[2020-08-06] MEDS: D5W/0.9% NACL 1,000 ML IV SCH (09:53)
[2020-08-06] MEDS: HYDROmorphone 1 MG/1 ML INJ IV PRN (09:53)
[2020-08-06] MEDS: FAMOTIDINE 20 MG/2 ML INJ IV SCH ×2 (09:53→21:31)
--- NOTE | 2020-08-06 14:55 | Anesthesia Consultation ---
Anesthesia Consult and Med Hx Date of service: 08/06/20 - Airway Anesthetic Teeth Evaluation: Good ROM Head & Neck: Adequate Mental/Hyoid Distance: Adequate Mallampati Class: Class II Intubation Access Assessment: Probably Good - Pre-Operative Health Status ASA Pre-Surgery Classification: ASA2 Proposed Anesthetic Plan: General - Pulmonary Hx Smoking: No Hx Asthma: No COPD: No Hx Pneumonia: No Hx Sleep Apnea: No - Cardiovascular System Hx Hypertension: No Hx Coronary Artery Disease: No Hx Heart Attack/AMI: No Hx Angina: No Hx Percutaneous Transluminal Coronary Angioplasty (PTCA): No Hx Pacemaker: No Hx Internal Defibrillator: No Hx Valvular Heart Disease: No Hx Heart Murmur: No Hx Peripheral Vascular Disease: No - Central Nervous System Hx Seizures: No CVA: No Hx Psychiatric Problems: No - Endocrine Hx Renal Disease: No Hx End Stage Renal Disease: No Hx Liver Disease: Yes (acute cholecystitis with stones) - Other Systems Hx Obesity: No
--- NOTE | 2020-08-06 14:56 | Anesthesia Day of Surgery ---
Anesthesia Day of Surgery - Day of Surgery Patient Examined: Yes Patient H&P Reviewed: Yes Patient is NPO: Yes
[2020-08-06] MEDS ORDERED: LIDOCAINE MPF (2%) 20 MG/1 ML VIAL 5 ML ONE (16:00)
[2020-08-06] MEDS ORDERED: HYDROmorphone 1 MG/1 ML INJ ONE (16:00)
[2020-08-06] MEDS ORDERED: propofoL 200 MG/20 ML VIAL IV ONE (16:00)
[2020-08-06] MEDS ORDERED: BUPIVACAINE-EPINEPHRINE/PF 0.5%-1:200,000 (30 ML) VIAL INFILTRATI ONE ×2 (16:27→17:38)
[2020-08-06] MEDS ORDERED: ROCURONIUM 50 MG/5 ML INJ IV ONE ×2 (17:08→18:22)
[2020-08-06] MEDS ORDERED: LACTATED RINGERS 1,000 ML ONE ×3 (17:08→19:42)
[2020-08-06] MEDS ORDERED: SODIUM CHLORIDE 0.9% IRRIG SOLN 2000 ML IR ONE (17:38)
[2020-08-06] MEDS ORDERED: NEOSTIGMINE 10MG/10 ML INJ MDV ONE (18:23)
[2020-08-06] MEDS ORDERED: GLYCOPYRROLATE 0.4 MG/2 ML INJ ONE (18:23)
[2020-08-06] MEDS ORDERED: KETOROLAC 30 MG/1 ML INJ ONE (18:26)
[2020-08-06] MEDS ORDERED: ONDANSETRON 4 MG/2 ML INJ ONE (18:26)
--- NOTE | 2020-08-06 19:02 | Procedure Note ---
Date of procedure: 08/06/20 Pre-op diagnosis: Acute cholecystitis Post-op diagnosis: same Procedure: Laparoscopic cholecystectomy Description of procedure: Pt was placed supine on the OR table. GETA was administered. Abdomen was prepped and draped. Proposed trocar sites were infi ltrated with 8 ml of 0.5% Marcaine with epinephrine. A small, infraumbilical incision was made. Linea alba was incised and the peritoneal cavity carefully entered. A Rena port was inserted into the peritoneal cavity and pneumoperitoneum established. 10 mm subxiphoid, 5 mm RUQ and 5 mm right lateral ports were inserted into the peritoneal cavity under direct vision without incident. Gallbladder was covered with omental adhesions. These were lysed from the fundus and the gallbladder was found to be acutely inflamed, edematous and tense. Gallbladder was decompressed with a needle trocar with 10 ml of cloudy, greenish fluid aspirated. This was sent for C&S. Fundus was grasped and the fundus retracted cephalad and laterally. Additional omental adhesions were bluntly lysed. The cystic duct and artery were identified and skeletonized. The critical view of safety was obtained. A large stone was present in the neck of the gallbladder. Cystic duct was milked towards the gallbladder and the cyst duct and artery doubly clipped and divided. The gallbladder was dissected off of it's hepatic fossa with careful blunt and electrocautery dissection. The gallbladder was entered several times during this dissection with leaking of the cloudy bile fluid into the subhepatic space. Once the gallbladder was completely freed, the gallbladder and stones were placed in an endobag and the endobag removed via the infraumbilical fascial defect. Pneumoperitoneum was re-established. Irrigation fluid used during the procedure was aspirated from Adrian's pouch and the subhepatic space. A flat, 10 mm ISHMAEL drain was passed into the peritoneal cavity and the drain placed in Adrian's pouch. The drain was brought out the right lateral trocar site and was secured to the skin with a suture of 2-0 Nylon. Pneumoperitoneum was released with no bleeding identified from any of the upper trocar sites under low pressure. The infraumbilical fascial defect was closed with several interrupted sutures of 0-Vicryl. Wounds were irrigated. Skin incisions were closed with running, subcuticular sutures of 4-0 Monocryl. Skin glue was applied to the incisions with a dry 4 X 4 placed about the drain exit site. Pt tolerated the procedure well. Pt was extubated in the OR and was taken to PACU in stable condtion. Anesthesia: BILL Surgeon: MIKAEL NAPOLES Estimated blood loss: 50-100ml Pathology: list (1) Gallbladder and gallstones 2) C&S of gallbladder fluid) Specimen disposition: to lab Condition: stable Disposition: PACU
[2020-08-06] MEDS ORDERED: ONDANSETRON 4 MG/2 ML INJ IV PRN (19:06)
[2020-08-06] MEDS ORDERED: HYDROmorphone 1 MG/1 ML INJ IV PRN (19:06)
[2020-08-06] MEDS: MORPHINE 2 MG/1 ML INJ IV PRN (21:31)
--- NOTE | 2020-08-06 22:33 | Post Anesthesia Evaluation ---
- Post Anesthesia Evaluation Patient Participated: Yes Airway Patent: Yes Stable Respiratory Function: Yes Nausea/Vomiting: No Temp > 96.8F: Yes Pain Manageable: Yes Adequeate Hydration: Yes Anesthesia Complications: No
[2020-08-07] MEDS: PIPERACIL/TAZOBACTA 4.5/NS 100 4.5 GM/100 ML VIAL IV SCH ×3 (05:47→21:58)
[2020-08-07] MEDS: MORPHINE 2 MG/1 ML INJ IV PRN ×3 (05:47→23:22)
[2020-08-07] MEDS: D5W/0.9% NACL 1,000 ML IV SCH (08:44)
[2020-08-07] MEDS: FAMOTIDINE 20 MG/2 ML INJ IV SCH ×3 (08:46→21:59)
[2020-08-07] MEDS: HEPARIN 5,000 UNIT/1 ML VIAL SUB-Q SCH ×3 (08:47→21:59)
--- NOTE | 2020-08-07 09:47 | Discharge Summary ---
Providers - Providers Date of Admission: 08/06/20 12:07 Date of discharge: 08/07/20 Attending physician: NUBIA ESQUEDA MD 08/04/20 19:11 Consult to Physician [CONS] Urgent Comment: Dr. Hernández spoke with Dr. Gibson @ [id number] Consulting Provider: MIKAEL HERNÁNDEZ Physician Instructions: Reason For Exam: acute cholecystitis Primary care physician: LARD RENDERER Hospitalization Reason for admission: Acute cholecystitis Condition: Stable Procedures: Status post laparoscopic cholecystectomy Hospital course: History of present illness: 34-year-old Andorran-speaking male ongoing for right upper quadrant pain for the last 2 days. Pain is about 10 on a scale of 1-10. Associated with nausea and vomiting. Several episodes of vomiting yesterday. Pain is intermittent. Eating is a exacerbating factor. Not eating is a relieving factor. No significant past medical history. Hospital course (1) sepsis Current Visit: Yes Status: Acute Plan to address problem: Patient had leukocytosis and tachycardia Patient is on IV Zosyn (2) Acute cholecystitis Current Visit: Yes Status: Acute Plan to address problem: Patient initiated on IV Zosyn and IV Dilaudid for pain and IV Zofran for nausea vomiting Surgery consult requested (3) DVT prophylaxis Current Visit: Yes Status: Acute Plan to address problem: On SCDs and GI prophylaxis (4) Acute dehydration Current Visit: Yes Status: Acute Plan to address problem: IV fluids for now 08/05/2020 -Patient is admitted for sepsis, acute cholecystitis. Patient is on IV Zosyn. General surgery; Dr. Hernández was consulted. Will follow surgical recommendations. 08/06/2020 -Continue with IV antibiotic. Patient will have laparoscopic cholecystectomy today. Patient had laparoscopic cholecystectomy today. Patient's abdominal pain is getting better. Patient tolerated diet well. I am going to discharge the patient with p.o. Augmentin for 5 days. Patient will follow with Edgar within a week. Patient was hemodynamically stable at the time of discharge. Disposition: -01 TO HOME OR SELFCARE Time spent for discharge: 32 minutes - Discharge Diagnoses (1) Sepsis Status: Acute (2) Acute cholecystitis Status: Acute (3) SIRS (systemic inflammatory response syndrome) Status: Acute Core Measure Documentation - Palliative Care Palliative Care/ Comfort Measures: Not Applicable - Core Measures Any of the following diagnoses?: none Exam - Physical Exam Narrative exam: Not in cardiopulmonary distress. The patient appeared well nourished and normally developed. Vital signs as documented. Head exam is unremarkable. No scleral icterus . Neck is without jugular venous distension, thyromegaly, or carotid bruits. Lungs are clear to auscultation. Cardiac exam reveals regular rate and Rhythm. Abdominal exam reveals normal bowel sounds, no organomegaly. Right upper quadrant tenderness. Extremities are nonedematous and both femoral and pedal pulses are normal. K 9 POLICE OFFICER: Alert and oriented 3. No focal weakness. - Constitutional Vitals: Temp Pulse Resp BP Pulse Ox 99.2 F 80 15 112/70 95 08/07/20 04:47 08/07/20 04:47 08/07/20 04:47 08/07/20 04:47 08/07/20 04:47 Plan Activity: no restrictions Weight Bearing Status: Full Weight Bearing Diet: advance as tolerated Follow up with: PRIMARY MD WOJCIECH [Primary Care Provider] - 7 Days MIKAEL HERNÁNDEZ MD [Staff Physician] - 7 Days Prescriptions: Amoxicillin/K Clav Tab [Augmentin 875 mg] 1 tab PO Q12HR #10 tab oxyCODONE /ACETAMINOPHEN [Percocet 5/325] 1 tab PO Q6HR PRN #10 tablet PRN Reason: Pain
[2020-08-07] MEDS ORDERED: LIDOCAINE 1%/EPINEPHRINE 1:100,000 VIAL (20 ML) INFILTRATI ONE (11:41)
--- NOTE | 2020-08-07 11:41 | Progress Note ---
Assessment and Plan - Patient Problems (1) Acute cholecystitis Current Visit: Yes Status: Acute Plan to address problem: 1) Satisfactory post-op course 2) Regular diet 3) Oral narcotics for pain 4) Anticipate discharge tomorrow after ISHMAEL is removed. 5) Oral Cipro X 10 days post discharge. Subjective Date of service: 08/07/20 Patient Reports: Positive: no new complaints, feels better Objective Vital Signs - 12hr 08/07/20 08/07/20 04:47 10:30 Temperature 99.2 F 97.6 F Pulse Rate 80 67 Respiratory 15 16 Rate Blood Pressure 112/70 134/68 O2 Sat by Pulse 95 94 Oximetry - Abdomen PM_46_EXABD1 4, PM_46_EXABD1 6, PM_46_EXABD1 8 Hernia: none, other (ISHMAEL drainage is minimal and is serosanguinous. ) - Labs 08/06/20 05:06 08/06/20 05:06
[2020-08-07] MEDS: HYDROmorphone 1 MG/1 ML INJ IV PRN (12:17)
[2020-08-07 12:57] LABS: Basophils % (Auto) 0.2 % (0.0-1.8); Eosinophils # (Auto) 0.1 K/mm3 (0.0-0.4); Eosinophils % (Auto) 1.4 % (0.0-4.3); Hematocrit 38.4 % (35.5-45.6); Hemoglobin 13.3 gm/dl (11.8-15.2); Lymphocytes # (Auto) 1.4 K/mm3 (1.2-5.4); Lymphocytes % (Auto) 15.8 % (13.4-35.0); Mean Corpuscular HGB Conc 35 % (32-34); Mean Corpuscular Volume 89 fl (84-94); Monocytes # (Auto) 1.1 K/mm3 (0.0-0.8); Monocytes % (Auto) 13.1 % (0.0-7.3); Platelet Count 268 K/mm3 (140-440); Red Blood Count 4.33 M/mm3 (3.65-5.03); Red Cell Distribution Width 12.7 % (13.2-15.2)
--- NOTE | 2020-08-07 12:58 | Progress Note ---
Assessment and Plan Assessment and plan: (1) sepsis Current Visit: Yes Status: Acute Plan to address problem: Patient had leukocytosis and tachycardia Patient is on IV Zosyn (2) Acute cholecystitis Current Visit: Yes Status: Acute Plan to address problem: Patient initiated on IV Zosyn and IV Dilaudid for pain and IV Zofran for nausea vomiting Surgery consult requested (3) DVT prophylaxis Current Visit: Yes Status: Acute Plan to address problem: On SCDs and GI prophylaxis (4) Acute dehydration Current Visit: Yes Status: Acute Plan to address problem: IV fluids for now 08/05/2020 -Patient is admitted for sepsis, acute cholecystitis. Patient is on IV Zosyn. General surgery; Dr. Hernández was consulted. Will follow surgical recommendations. 08/06/2020 -Continue with IV antibiotic. Patient will have laparoscopic cholecystectomy today. 08/07/2020; patient is doing well, tolerated diet. Discussed with Dr. Hernández and he wants to keep the patient 1 more day and he will remove ISHMAEL drain tomorrow. Recommend to discharge him tomorrow with Cipro for 10 days. - Patient Problems (1) Sepsis Current Visit: Yes Status: Acute (2) Acute cholecystitis Current Visit: Yes Status: Acute (3) SIRS (systemic inflammatory response syndrome) Current Visit: Yes Status: Acute History Interval history: Patient was seen and evaluated this morning Patient is complaining of right upper quadrant pain Hospitalist Physical - Physical exam Narrative exam: Not in cardiopulmonary distress. The patient appeared well nourished and normally developed. Vital signs as documented. Head exam is unremarkable. No scleral icterus . Neck is without jugular venous distension, thyromegaly, or carotid bruits. Lungs are clear to auscultation. Cardiac exam reveals regular rate and Rhythm. Abdominal exam reveals normal bowel sounds, no organomegaly. Right upper quadrant tenderness. Extremities are nonedematous and both femoral and pedal pulses are normal. TECHNICAL COMMUNICATOR: Alert and oriented 3. No focal weakness. - Constitutional Vitals: Temp Pulse Resp BP Pulse Ox 97.6 F 67 16 134/68 94 08/07/20 10:30 08/07/20 10:30 08/07/20 10:30 08/07/20 10:30 08/07/20 10:30 General appearance: Present: mild distress (Secondary to pain), well-nourished Results - Labs CBC & Chem 7: 08/06/20 05:06 08/06/20 05:06 Labs: Laboratory Last Values WBC 9.2 K/mm3 (4.5-11.0) 08/06/20 05:06 RBC 4.57 M/mm3 (3.65-5.03) 08/06/20 05:06 Hgb 13.6 gm/dl (11.8-15.2) 08/06/20 05:06 Hct 40.6 % (35.5-45.6) 08/06/20 05:06 MCV 89 fl (84-94) 08/06/20 05:06 MCH 30 pg (28-32) 08/06/20 05:06 MCHC 34 % (32-34) 08/06/20 05:06 RDW 13.0 % (13.2-15.2) L 08/06/20 05:06 Plt Count 239 K/mm3 (140-440) 08/06/20 05:06 Lymph % (Auto) 15.3 % (13.4-35.0) 08/06/20 05:06 [place] % (Auto) 15.8 % (0.0-7.3) H 08/06/20 05:06 Eos % (Auto) 2.7 % (0.0-4.3) 08/06/20 05:06 Baso % (Auto) 0.4 % (0.0-1.8) 08/06/20 05:06 Lymph # (Auto) 1.4 K/mm3 (1.2-5.4) 08/06/20 05:06 [place] # (Auto) 1.4 K/mm3 (0.0-0.8) H 08/06/20 05:06 Eos # (Auto) 0.3 K/mm3 (0.0-0.4) 08/06/20 05:06 Baso # (Auto) 0.0 K/mm3 (0.0-0.1) 08/06/20 05:06 Seg Neutrophils % 65.8 % (40.0-70.0) 08/06/20 05:06 Seg Neutrophils # 6.0 K/mm3 (1.8-7.7) 08/06/20 05:06 Sodium 138 mmol/L (137-145) 08/06/20 05:06 Potassium 3.9 mmol/L (3.6-5.0) 08/06/20 05:06 Chloride 102.4 mmol/L (98-107) 08/06/20 05:06 Carbon Dioxide 28 mmol/L (22-30) 08/06/20 05:06 Anion Gap 12 mmol/L 08/06/20 05:06 BUN 9 mg/dL (9-20) 08/06/20 05:06 Creatinine 0.7 mg/dL (0.8-1.3) L 08/06/20 05:06 Estimated GFR > 60 ml/min 08/06/20 05:06 BUN/Creatinine Ratio 13 % 08/06/20 05:06 Glucose 118 mg/dL (75-100) H 08/06/20 05:06 Calcium 8.8 mg/dL (8.4-10.2) 08/06/20 05:06 Total Bilirubin 1.00 mg/dL (0.1-1.2) 08/06/20 05:06 AST 18 units/L (5-40) 08/06/20 05:06 ALT 39 units/L (7-56) 08/06/20 05:06 Alkaline Phosphatase 66 units/L (35-129) 08/06/20 05:06 Total Protein 7.5 g/dL (6.3-8.2) 08/06/20 05:06 Albumin 3.9 g/dL (3.9-5) 08/06/20 05:06 Albumin/Globulin Ratio 1.1 % 08/06/20 05:06 Lipase 18 units/L (13-60) 08/04/20 15:13 Urine Color Yellow (Yellow) 08/04/20 15:21 Urine Turbidity Cloudy (Clear) 08/04/20 15:21 Urine pH 8.0 (5.0-7.0) H 08/04/20 15:21 Ur Specific [place] 1.024 (1.003-1.030) 08/04/20 15:21 Urine Protein 30 mg/dl mg/dL (Negative) 08/04/20 15:21 Urine Glucose (UA) Neg mg/dL (Negative) 08/04/20 15:21 Urine Ketones Neg mg/dL (Negative) 08/04/20 15:21 Urine Blood Neg (Negative) 08/04/20 15:21 Urine Nitrite Neg (Negative) 08/04/20 15:21 Ur Reducing Substances Not Reportable 08/04/20 15:21 Urine Bilirubin Neg (Negative) 08/04/20 15:21 Urine Ictotest Not Reportable 08/04/20 15:21 Urine Urobilinogen < 2.0 mg/dL (<2.0) 08/04/20 15:21 Ur Leukocyte Esterase Neg (Negative) 08/04/20 15:21 Urine WBC (Auto) 9.0 /HPF (0.0-6.0) H 08/04/20 15:21 Urine RBC (Auto) 1.0 /HPF (0.0-6.0) 08/04/20 15:21 Urine Yeast (Budding) 3+ /HPF 08/04/20 15:21 Microbiology: Microbiology 08/04/20 15:21 Urine,Clean Catch Urine Culture - Final NO GROWTH AFTER 48 HOURS Gordon/IV: Voiding Method Toilet Active Medications - Current Medications Current Medications: Generic Name Dose Route Start Last Admin Trade Name Freq PRN Reason Stop Dose Admin Acetaminophen 650 mg 08/04/20 22:40 08/07/20 08:45 Acetaminophen 325 Mg Tab PO 650 mg Q4H PRN Administration Pain MILD(1-3)/Fever >100.5/MARIN Famotidine 20 mg 08/04/20 23:00 08/07/20 09:03 Famotidine 20 Mg/2 Ml Inj IV Not Given BID SEAN Heparin Sodium (Porcine) 5,000 unit 08/05/20 22:00 08/07/20 09:03 Heparin 5,000 Unit/1 Ml Vial SUB-Q Not Given Q12HR SEAN Hydromorphone HCl 0.5 mg 08/04/20 22:40 08/07/20 12:17 Hydromorphone 1 Mg/1 Ml Inj IV 0.5 mg Q3H PRN Administration Pain , Severe (7-10) Dextrose/Sodium Chloride 1,000 mls @ 100 mls/hr 08/04/20 23:00 08/07/20 08:44 D5ns IV 100 mls/hr DIRECT SEAN Administration Piperacillin Sod/Tazobactam Sod 4.5 gm in 100 mls @ 200 mls/hr 08/05/20 04:00 08/07/20 05:47 Zosyn/Ns 4.5gm/100ml IV 200 mls/hr Q8HR SEAN Administration Protocol Metoclopramide HCl 10 mg 08/04/20 22:40 Metoclopramide 10 Mg/2 Ml Inj IV Q6H PRN Nausea And Vomiting Morphine Sulfate 2 mg 08/04/20 22:40 08/07/20 05:47 Morphine 2 Mg/1 Ml Inj IV 2 mg Q4H PRN Administration Pain, Moderate (4-6) Ondansetron HCl 4 mg 08/04/20 22:40 Ondansetron 4 Mg/2 Ml Inj IV Q3H PRN Nausea And Vomiting Sodium Chloride 10 ml 08/04/20 23:00 08/07/20 09:02 Sodium Chloride 0.9% 10 Ml Flush Syringe IV Not Given BID SEAN Sodium Chloride 10 ml 08/04/20 22:40 Sodium Chloride 0.9% 10 Ml Flush Syringe IV PRN PRN LINE FLUSH Nutrition/Malnutrition Assess - Dietary Evaluation Nutrition/Malnutrition Findings: Nutrition Notes Start: 08/05/20 08:51 Freq: Status: Active Protocol: Document 08/05/20 08:51 AB (Rec: 08/05/20 08:53 AB [id number]) Co-Sign 08/05/20 08:51 MK Nutrition Notes Need for Assessment generated from: nanofabrication specialist Initial or Follow up Brief Note Other Pertinent Diagnosis acute cholecystitis, acute dehydration, SIRS Current Diet NPO Subjective/Other Information RN screen for skin risk. Per chart, Toño Score is 22. Nutrition Intervention Anticipated Discharge Needs: Regular diet Revisit per MD consult or patient Sign Off request:
[2020-08-07 13:15] LABS: Alanine Aminotransferase 66 units/L (7-56); BUN/Creatinine Ratio 11; Blood Urea Nitrogen 8 mg/dL (9-20); Calcium 8.6 mg/dL (8.4-10.2); Hemolysis Index 4
[2020-08-07 21:28] VITALS: BP 126/86
[2020-08-08] MEDS: PIPERACIL/TAZOBACTA 4.5/NS 100 4.5 GM/100 ML VIAL IV SCH (05:26)
[2020-08-08] MEDS: HEPARIN 5,000 UNIT/1 ML VIAL SUB-Q SCH (09:46)
[2020-08-08] MEDS: FAMOTIDINE 20 MG/2 ML INJ IV SCH (09:46)
== END 2020-08-08 18:00 | disposition home or self-care (01) | DRG 854 ==
LOC: ED 14:47 → 3A 19:22 → OBSVTOIN 08-06 12:07
PROVIDERS: ADMIT Internal Medicine; ATTEND Internal Medicine
PROC: 0FT44ZZ Resection of Gallbladder, Percutaneous Endoscopic Approach (ICD-10-PCS; principal; 2020-08-06)
DX: A41.9 Sepsis, unspecified organism (principal); K80.00 Calculus of gallbladder with acute cholecystitis without obstruction; E86.0 Dehydration
CPT/HCPCS: 36415; 74177; 76705; 80053; 81001; 83690; 85025; 87075; 87086; 87116; 88304; 96365; G0378; A4217; J1170; J1644; J1885; J2270; J2405; J2543; J2704; J2710; J7042; J7120; Q9967

== ENCOUNTER 2020-09-03 12:09 | Emergency (ER) | payer SELFPAY ==
--- NOTE | 2020-09-03 15:10 | Event Note ---
ED Screening Note Date of service: 09/03/20 Time: 15:08 ED Screening Note: 34-year-old male patient with history of cholecystectomy 3 weeks ago presents to the emergency department with complaints of painful rectal bleeding since his surgery. He is not anticoagulated. He has not noticed any black stools. He is not losing blood anywhere else. He is no longer taking pain medication. He has not followed up with the surgeon since the operation. He does not have a prior history of GI bleeding. General: Awake, appropriately interactive, no acute distress. Neck: Supple. Full range of motion intact. Cardiovascular: Normal peripheral perfusion. Pulmonary: No respiratory distress. Patient is speaking normally without use of accessory muscles. Skin: No apparent rashes or lesions. Neurological: No facial asymmetry. Speech is clear. Follows commands. Patient is alert and oriented. Musculoskeletal: Moves all four extremities spontaneously with normal range of motion. Psych: Cooperative. Appropriate mood and affect. I have greeted and performed a focused rapid initial assessment of this patient. A comprehensive ED assessment and evaluation of the patient, analysis of all test results, and completion of the medical decision-making process will be conducted by additional ED providers. This initial assessment/diagnostic orders/clinical plan/treatment(s) is/are subject to change based on patients health status, clinical progression and re-assessment. Further treatment and wo rkup at subsequent clinical provider's discretion. Patient/guardian urged not to elope from the ED as their condition may be serious if not clinically assessed and managed.
[2020-09-03 16:29] LABS: Basophils % (Auto) 0.5 % (0.0-1.8); Eosinophils # (Auto) 0.4 K/mm3 (0.0-0.4); Eosinophils % (Auto) 5.3 % (0.0-4.3); Hematocrit 42.1 % (35.5-45.6); Hemoglobin 14.4 gm/dl (11.8-15.2); Lymphocytes # (Auto) 1.9 K/mm3 (1.2-5.4); Lymphocytes % (Auto) 26.6 % (13.4-35.0); Mean Corpuscular HGB Conc 34 % (32-34); Mean Corpuscular Volume 89 fl (84-94); Monocytes # (Auto) 0.8 K/mm3 (0.0-0.8); Monocytes % (Auto) 10.8 % (0.0-7.3); Platelet Count 215 K/mm3 (140-440); Red Blood Count 4.75 M/mm3 (3.65-5.03); Red Cell Distribution Width 13.3 % (13.2-15.2)
[2020-09-03 16:31] LABS: Alanine Aminotransferase 121 units/L (7-56); Albumin 4.6 g/dL (3.9-5); Blood Urea Nitrogen 13 mg/dL (9-20); Calcium 9.5 mg/dL (8.4-10.2); Hemolysis Index 10
[2020-09-03 16:40] LABS: BUN/Creatinine Ratio 22; INR 1.04 (0.87-1.13)
--- NOTE | 2020-09-03 22:02 | Emergency Department Report ---
ED Abdominal Pain HPI - General Chief Complaint: Rectal Pain Stated Complaint: ANAL PAIN/BURNING Time Seen by Provider: 09/03/20 22:00 Source: patient Mode of arrival: Ambulatory Limitations: No Limitations - History of Present Illness Initial Comments: Patient is a 34-year-old male with past medical history of recent cholecystectomy approximately 3 weeks ago who states he has been having some pain when he has bowel movements as well as some bleeding. Patient states the blood is only on the toilet paper. Has no abdominal pain no lightheadedness no cough cold congestion fevers or chills. States he does have some mild straining with bowel movements. - Related Data Previous Rx's Medication Instructions Recorded Last Taken Type oxyCODONE /ACETAMINOPHEN [Percocet 1 tab PO Q6HR PRN #10 tablet 08/07/20 Unknown Rx 5/325] Ciprofloxacin HCl [Ciprofloxacin 500 mg PO BID #40 tablet 08/08/20 Unknown Rx TAB] Docusate Sodium [Colace] 100 mg PO BID #20 capsule 09/03/20 Unknown Rx Hydrocort/Pramoxine [Proctofoam-Hc] 10 gm [place] BID #10 can 09/03/20 Unknown Rx Allergies Allergy/AdvReac Type Severity Reaction Status Date / Time No Known Allergies Allergy Unverified 08/04/20 14:58 ED Review of Systems ROS: Stated complaint: ANAL PAIN/BURNING Other details as noted in HPI Comment: All other systems reviewed and negative ED Past Medical Hx - Past Medical History Hx Hypertension: No Hx Heart Attack/AMI: No Hx Congestive Heart Failure: No Hx Diabetes: No Hx Deep Vein Thrombosis: No Hx Pulmonary Embolism: No Hx GERD: No Hx Liver Disease: No (acute cholecystitis with stones) Hx Renal Disease: No Hx Seizures: No Hx Kidney Stones: Yes Hx Asthma: No Hx COPD: No Hx Tuberculosis: No Hx Dementia: No Hx HIV: No - Surgical History Hx Coronary Stent: No Hx Pacemaker: No Hx Internal Defibrillator: No - Social History Smoking Status: Never Smoker - Medications Home Medications: Home Medications Medication Instructions Recorded Confirmed Last Taken Type oxyCODONE /ACETAMINOPHEN [Percocet 1 tab PO Q6HR PRN #10 tablet 08/07/20 Unknown Rx 5/325] Ciprofloxacin HCl [Ciprofloxacin 500 mg PO BID #40 tablet 08/08/20 Unknown Rx TAB] Docusate Sodium [Colace] 100 mg PO BID #20 capsule 09/03/20 Unknown Rx Hydrocort/Pramoxine [Proctofoam-Hc] 10 gm [place] BID #10 can 09/03/20 Unknown Rx ED Physical Exam - General Limitations: No Limitations General appearance: alert, in no apparent distress - Head Head exam: Present: atraumatic, normocephalic - Eye Eye exam: Present: normal appearance - ENT ENT exam: Present: mucous membranes moist - Neck Neck exam: Present: normal inspection - Respiratory Respiratory exam: Present: normal lung sounds bilaterally. Absent: respiratory distress - Cardiovascular Cardiovascular Exam: Present: regular rate, normal rhythm, normal heart sounds. Absent: systolic murmur, diastolic murmur, rubs, gallop - GI/Abdominal GI/Abdominal exam: Present: soft, normal bowel sounds. Absent: distended, tenderness, guarding, rebound - Rectal Rectal exam: Present: deferred, normal inspection, heme (+) stool, hemorrhoids (probable internal). Absent: black stool, bloody stool - Extremities Exam Extremities exam: Present: normal inspection - Back Exam Back exam: Present: normal inspection - Neurological Exam Neurological exam: Present: alert, oriented X3 - Psychiatric Psychiatric exam: Present: normal affect, normal mood - Skin Skin exam: Present: warm, dry, intact, normal color. Absent: rash ED Medical Decision Making - Lab Data Result diagrams: 09/03/20 15:46 09/03/20 15:46 - Medical Decision Making Patient likely straining secondary to recently being on narcotics for his cholecystectomy. Patient started on Colace and Proctofoam will be discharged home. Critical care attestation.: If time is entered above; I have spent that time in minutes in the direct care of this critically ill patient, excluding procedure time. ED Disposition Clinical Impression: Internal hemorrhoid Disposition: DC-01 TO HOME OR SELFCARE Is pt being admited?: No Does the pt Need Aspirin: No Condition: Stable Instructions: Hemorrhoids, [id number] Referrals: PRIMARY CARE, [Primary Care Provider] - 3-5 Days Time of Disposition: 22:06
[2020-09-03 22:46] VITALS: BP 120/84
== END 2020-09-03 22:44 | disposition home or self-care (01) ==
LOC: ED 12:09
DX: K64.8 Other hemorrhoids (principal); Z79.899 Other long term (current) drug therapy
CPT/HCPCS: 36415; 80053; 83735; 85025; 85610; 85730; 99283